=== PATIENT | female | born 1975 ===

== ENCOUNTER 2018-04-11 12:00 | Emergency (ER) | payer OTHER ==
[2018-04-11 12:05] VITALS: BMI 25.7
[2018-04-11 12:08] VITALS: BP 126/79; PULSE 74; RESP 20; TEMP 99.1; O2SAT 98
--- NOTE | 2018-04-11 12:10 | ED PDOC ---
Upper Extremity Pain/Injury Time Seen by Provider: 04/11/18 12:09 Chief Complaint (Nursing): Upper Extremity Problem/Injury Chief Complaint (Provider): right arm pain History Per: Patient History/Exam Limitations: no limitations Onset/Duration Of Symptoms: Days (x1) Current Symptoms Are (Timing): Still Present Additional Complaint(s): 42 year old right hand dominant female presents to the emergency department complaining of right arm pain, which she describes as radiating up and down the forearm. Patient states she applied Bengay and took Tylenol with no relief, prompting her ED visit. She states that yesterday she helped to put an air conditioner in a window, which may have caused the pain, but denies any other trauma or injury. No associated chest pain, SOB or ALEX. PMD: Benigno Roper Past Medical History Reviewed: Historical Data, Nursing Documentation, Vital Signs Vital Signs: Last Vital Signs Temp 99.1 F 04/11/18 12:04 Pulse 74 04/11/18 12:04 Resp 20 04/11/18 12:04 BP 126/79 04/11/18 12:04 Pulse Ox 98 04/11/18 12:04 - Medical History PMH: No Chronic Diseases - Surgical History Surgical History: (x2) Other surgeries: right knee surgery - Family History Family History: States: No Known Family Hx - Living Arrangements Living Arrangements: With Family - Social History Current smoker - smoking cessation education provided: No Alcohol: None Drugs: Denies - Home Medications Home Medications: Ambulatory Orders Medication Instructions Recorded Cyclobenzaprine [Cyclobenzaprine 10 mg PO TID PRN #20 tab 04/11/18 HCl] Naproxen [Naprosyn] 500 mg PO BID #20 tab 04/11/18 - Allergies Allergies/Adverse Reactions: Allergies Allergy/AdvReac Type Severity Reaction Status Date / Time No Known Allergies Allergy Verified 04/11/18 12:03 Review of Systems ROS Statement: Except As Marked, All Systems Reviewed And Found Negative Cardiovascular: Negative for: Chest Pain Respiratory: Negative for: Shortness of Breath Musculoskeletal: Positive for: Arm Pain (right forearm, radiating pain) Physical Exam - Reviewed Nursing Documentation Reviewed: Yes Vital Signs Reviewed: Yes - Physical Exam Appears: Positive for: Well, Non-toxic, No Acute Distress Head Exam: Positive for: ATRAUMATIC, NORMAL INSPECTION, NORMOCEPHALIC Skin: Positive for: Normal Color. Negative for: Rash Eye Exam: Positive for: Normal appearance Neck: Positive for: Normal, Painless ROM. Negative for: Pain On Movement Of Neck Cardiovascular/Chest: Positive for: Regular Rate, Rhythm Respiratory: Positive for: Normal Breath Sounds. Negative for: Wheezing, Respiratory Distress Back: Positive for: Normal Inspection Extremity: Positive for: Normal ROM (of right arm, but with pain), Tenderness ( to medial right forearm and elbow), Other (sensation intact) Neurologic/Psych: Positive for: Alert, Oriented - ECG O2 Sat by Pulse Oximetry: 98 (RA) Pulse Ox Interpretation: Normal - Other Rad Right forearm and elbow x-ray X-Ray: Interpreted by Me, Viewed By Me Medical Decision Making Medical Decision Making: Time: 12:18 Initial Impression: 42 year old female with right arm pain Initial Plan: --Toradol 30mg --Right Elbow X-Ray --Right Forearm X-Ray Patient is aware of x-ray results. All questions answered. Patient states she feels better after toradol IM. Advised ice, rest and elevation to affected area. Patient was given rx naprosyn and flexeril. She was referred to [facility] specialist for follow up. Sling applied to right arm. Scribe Attestation: Documented by Patti Bray, acting as a scribe for Araceli Hernández PA-C. Provider Scribe Attestation: All medical record entries made by the Scribe were at my direction and personally dictated by me. I have reviewed the chart and agree that the record accurately reflects my personal performance of the history, physical exam, medical decision making, and the department course for this patient. I have also personally directed, reviewed, and agree with the discharge instructions and disposition. Procedures - Splinting Location: Right arm Pre-Made Type: sling Pre-Proc Neuro Vasc Exam: normal Post-Proc Neuro Vasc Exam: normal Disposition - Clinical Impression Clinical Impression: Forearm contusion, Elbow sprain - Patient ED Disposition Is Patient to be Admitted: No Counseled Patient/Family Regarding: Studies Performed, Diagnosis, Need For Followup, Rx Given - Disposition Referrals: Emilio Thornton MD [Staff Provider] - Disposition: Routine/Home Disposition Time: 12:47 Condition: STABLE Additional Instructions: Ice, rest and elevate affected area. Take prescription meds as directed as needed for pain. Follow up in 2-3 days with orthopedist for further evaluation. Prescriptions: Cyclobenzaprine [Cyclobenzaprine HCl] 10 mg PO TID PRN #20 tab PRN Reason: Muscle Spasm Naproxen [Naprosyn] 500 mg PO BID #20 tab Instructions: Elbow Sprain (DC), Contusion (DC), Muscle Strain Forms: [facility] (Frisian)
--- NOTE | 2018-04-11 14:07 | RAD ---
PROCEDURE: Radiographs of the Right Forearm HISTORY: trauma COMPARISON: None available. TECHNIQUE: Frontal and lateral views obtained. FINDINGS: BONES: Bone alignment and mineralization are normal. There is no acute displaced fracture or bone destruction. JOINT SPACES: Unremarkable. OTHER FINDINGS: None. IMPRESSION: No acute fracture or dislocation.
--- NOTE | 2018-04-11 14:08 | RAD ---
PROCEDURE: Radiographs of the right elbow. HISTORY: trauma COMPARISON: No prior. FINDINGS: BONES: Bone alignment and mineralization are normal. There is no acute displaced fracture or bone destruction. JOINTS: Normal. No osteoarthritis. SOFT TISSUES: Normal. JOINT EFFUSION: None. OTHER FINDINGS: None. IMPRESSION: No acute fracture or dislocation.
== END 2018-04-11 13:30 | disposition home or self-care (01) ==
LOC: H.ER 12:00
DX: S50.11XA Contusion of right forearm, initial encounter (principal); S53.401A Unspecified sprain of right elbow, initial encounter; W22.8XXA Striking against or struck by other objects, initial encounter; Y92.89 Other specified places as the place of occurrence of the external cause
CPT/HCPCS: 73080; 73090; 81025; 96372; 99283; J1885